=== PATIENT | male | born 1990 | race Caucasian/White ===

== ENCOUNTER 2017-09-11 09:45 | Emergency (ER) | payer SELFPAY ==
[2017-09-11 09:49] VITALS: BP 139/79; BMI 30.9
--- NOTE | 2017-09-11 10:33 | DR.GENAD ---
HPI - PCP Primary Care Physician: NONE - Complaint/Symptoms Chief Complaint Doctors Comments: Patient admits to a foreign body in right eye for two days. Chief Complaint:: "SOMETHING IN MY RIGHT EYE BEEN HURTING FOR TWO DAYS" - Source History Provided: Patient - Mode of Arrival Mode of Arrival: Ambulatory - Timing Onset of Chief Complaint: 09/09/17 PMH - PMH Past Medical History: No Past Surgical History: No - Family History History of Family Medical Conditions: No - Social History Does patient currently use any type of tobacco product: Yes Have you used tobacco products in the last 12 months: Yes Type of Tobacco Use: Smokeless How many years tobacco product used: 10 Does any household member use tobacco: No Alcohol Use: None Do you use any recreational Drugs:: No Lives With: Family Lives Where: Home - infectious screening In the last 2 months have you had wt loss of >10#?: NO Have you had fever, night sweats or hemotysis?: No Have you traveled outside the country in the last 6 months?: No Isolation: Standard ROS - Review of Systems Eyes: Other (right eye with foreign body) ENTM: No Symptoms Reported Respiratoy: No Symptoms Reported Cardiovascular: No Symptoms Reported Gastrointestinal/Abdominal: No Symptoms Reported Genitourinary: No Symptoms Reported Neurological: No Symptoms Reported Musculoskeletal: No Symptoms Reported Integumentary: No Symptoms Reported Hematologic/Lymphatic: No Symptoms Reported Endocrine: No Symptoms Reported Psychiatric: No Symptoms Reported All Other Systems: Reviewed and Negative PE - Vital Signs Vitals: Temperature 98.1 F Pulse Rate 86 Respiratory Rate 18 Blood Pressure 139/79 O2 Sat by Pulse Oximetry 98 - General General Appearance: Alert, In No Apparent Distress - Head Head Exam: Normal Inspection, Atraumatic - Eyes Eye exam: Other (foreign body in right eye at 4'clock) - ENT ENT Exam: Normal Exam External Ear Exam: Normal External Inspection TM/Canal Exam: Bilateral Normal Nose Exam: Normal Nose Exam Mouth Exam: Normal Inspection Throat Exam: Normal Inspection - Neck Neck Exam: Normal Inspection - Chest Chest Inspection: Normal Inspection - Respiratory Respiratory Exam: Normal Lung Sounds Bilat Respiratory Exam: Bilateral Clear to Auscultation - Cardiovascular Cardiovascular Exam: Regular Rate, Normal Rhythm - Abdominal Exam Abdominal Exam: Normal Inspection, Normal Bowel Sounds Abdominal Tenderness: negative: RUQ, RLQ, LUQ, LLQ, Epigastrium, Suprapubic, Diffuse, Mild, Moderate, Severe, Other - Extremities Extremities Exam: Normal Inspection - Back Back Exam: Normal Inspection - Neurologic Neurological Exam: Alert, Oriented X3, CN II-XII Intact - Psychiatric Psychiatric Exam: Normal Affect - Skin Skin Exam: Warm, Dry, Intact Course - Treatment Treatment: Attempted romoval s/p topical anesthesi unsuccessful - Diagnosis Discharge Problem: Eye foreign body Qualifiers: Encounter type: initial encounter Laterality: right Qualified Code(s): T15.91XA - Foreign body on external eye, part unspecified, right eye, initial encounter - Discharge Plan Condition: Stable - Follow ups/Referrals Follow ups/Referrals: NFD,None [Primary Care Provider] - 3 days - Instructions
[2017-09-11] MEDS ORDERED: TETRACAINE HCL ONE (10:36)
[2017-09-11] MEDS ORDERED: FUL-GLO STRIP ONE ×2 (10:36→10:44)
== END 2017-09-11 10:57 | disposition home or self-care (01) ==
LOC: ER 09:52
DX: T15.91XA Foreign body on external eye, part unspecified, right eye, initial encounter (principal)
CPT/HCPCS: 99282